=== PATIENT | male | born 1965 | race African-American/Black ===

== ENCOUNTER 2023-05-25 19:45 | Inpatient (IN) | payer OTHER ==
[~2023-05-25] VITALS: Ht 182.9 cm; Wt 64.4 kg
[2023-05-25] MEDS: ALBUTEROL FS 2.5 MG/3 ML VIAL.NEB NEB ONE (03:11)
[2023-05-25] MEDS: IV NS 0.9% 1,000 ML BAG IV ONE (20:08)
[2023-05-25] MEDS ORDERED: DEXTROSE 50%-WATER 50 ML DISP.SYRIN ONE (20:21)
[2023-05-25] MEDS: DEXTROSE 50%-WATER 50 ML DISP.SYRIN IV ONE (20:22)
[2023-05-25] MEDS ORDERED: NOREPINEPHRINE 8MG/250ML RTU 250 ML IV ONE (20:40)
[2023-05-25 20:48] LABS: CALCIUM, SERUM 9.1 mg/dL (8.5-10.1); CARBON DIOXIDE 18 mmol/L (21-32); CHLORIDE 109 mmol/L (98-107); CREATININE 1.9 mg/dL (0.6-1.3); GLUCOSE 67 mg/dL (74-106); POTASSIUM 5.4 mmol/L (3.5-5.1); SODIUM SERUM 143 mmol/L (136-145); UREA NITROGEN, BLOOD 66 mg/dL (7-18)
[2023-05-25] MEDS: NOREPINEPHRINE 8 MG in IV D5W 242 ML IV PRN (20:59)
[2023-05-25 21:02] LABS: ALANINE AMINOTRANSFERASE 11 U/L (12-78); ALKALINE PHOSPHATASE 112 U/L (46-116); ASPARTATE AMINOTRANSFERASE 67 U/L (15-37); BILIRUBIN,DIRECT 1.8 mg/dL (0.0-0.2); BILIRUBIN,TOTAL 2.4 mg/dL (0.2-1.0); LIPASE 10 U/L (16-77); NT-PRO BNP 1433 pg/mL (0-125); TOTAL PROTEIN, SERUM 5.4 g/dL (6.4-8.2)
[2023-05-25 21:05] LABS: ALBUMIN 1.4 g/dL (3.4-5.0)
[2023-05-25 21:12] LABS: APPEARANCE,URINE CLEAR (CLEAR); BILIRUBIN,URINE NEGATIVE (NEGATIVE); BLOOD, URINE NEGATIVE Ery/uL (NEGATIVE); COLOR,URINE DARK YELLOW (YELLOW); KETONES,URINE NEGATIVE (NEGATIVE); LEUKOCYTE ESTERASE ,URINE TRACE (NEGATIVE); NITRITE, URINE NEGATIVE (NEGATIVE); PH,URINE 5.5 (5.0-8.0); PROTEIN,URINE NEGATIVE (NEGATIVE); UGLUCOSE NEGATIVE (NEGATIVE)
[2023-05-25 21:23] LABS: BASOPHILS % (AUTO) 0.1 % (0.0-2.0); EOSINOPHILS % (AUTO) 0.1 % (0.0-6.0); HEMATOCRIT 25 % (39-51); HEMOGLOBIN 7.2 g/dL (13.5-17.5); LYMPHOCYTES # (AUTO) 1.3 K/uL (0.8-4.8); LYMPHOCYTES % (AUTO) 9.9 % (20.0-44.0); MEAN CORPUSCULAR HEMOGLOBIN 25 PG (26.0-33.0); MEAN CORPUSCULAR HGB CONC 29 g/dl (31.0-36.0); MEAN CORPUSCULAR VOLUME 86 fL (80-96); MONOCYTES # (AUTO) 1.1 K/uL (0.1-1.30); MONOCYTES % (AUTO) 8.7 % (2.0-12.0); NEUTROPHILS # (AUTO) 10.5 K/uL (1.8-8.9); NEUTROPHILS % (AUTO) 81.2 % (43.0-81.0); PLATELET COUNT (AUTO) 144 K/uL (150-450); RED BLOOD CELL COUNT(AUTO) 2.87 MIL/uL (4.5-6.0); RED CELL DISTRIBUTION WIDTH 23.1 % (11.5-15.0); WHITE BLOOD COUNT (AUTO) 12.9 K/uL (4.3-11.0)
[2023-05-25] MEDS ORDERED: PIPERACI/TAZO 3.375GM/D5W 50ML PB IV ONE (21:30)
[2023-05-25] MEDS ORDERED: VANCOMYCIN 1 GM /D5W 250 ML PB IV ONE (21:30)
[2023-05-25 21:39] LABS: ADD URINE CULTURE YES; BACTERIA,URINE 1+ /HPF (None Seen); RBC,URINE 0-2 /HPF (0-2); SQUAMOUS EPITHELIAL CELL,UR None Seen /HPF (None Seen)
[2023-05-25 21:52] LABS: ANISOCYTOSIS 2+; BAND % (MANUAL) 2 % (0.0-5.0); LYMPHOCYTES % (MANUAL) 12 % (16-48); MONOCYTES % (MANUAL) 5 % (0-11.0); MYELOCYTES % 1 % (0-0); NEUTROPHILS % (MANUAL) 80 (42-76); PLATELET ESTIMATE DECREASED; TARGET CELLS 2+
[2023-05-25] MEDS ORDERED: ONDANSETRON HCL/PF 4 MG/2 ML VIAL IVP PRN (22:00)
[2023-05-25] MEDS ORDERED: Z GUARD REMEDY 4 OZ OINT TP PRN (22:00)
[2023-05-25] MEDS: IV D5/0.45 NACL 1,000 ML IV SCH (22:00)
[2023-05-25] MEDS ORDERED: MAG HYDROX/AL HYDROX/SIMETH 30 ML UDC PO PRN (22:00)
[2023-05-25] MEDS ORDERED: MAGNESIUM HYDROXIDE 30 ML UDC PO PRN (22:00)
[2023-05-25] MEDS: VANCOMYCIN 1 GM in IV D5W 250 ML IV ONE (22:04)
[2023-05-25] MEDS: PIPERACILLIN /TAZOBACTAM 3.375 G in IV D5W 50 ML IV ONE (22:04)
[2023-05-25] MEDS: SODIUM POLYSTYRENE SULFONATE 15 G/60 ML BOTTLE PO ONE (22:16)
[2023-05-25] MEDS: SODIUM BICARBONATE SYR 50 MEQ/50 ML DISP.SYRIN IV ONE (22:16)
[2023-05-26] VITALS (31 sets, daily range): BP systolic 70–114; BP diastolic 54–83; TEMP 98–98.3; O2SAT 96–100
[2023-05-26] MEDS: ACETAMINOPHEN 325 MG TABLET PO PRN (00:12)
[2023-05-26] MEDS ORDERED: ACETAMINOPHEN 325 MG TABLET ONE ×3 (00:13→11:48)
[2023-05-26] MEDS ORDERED: CEFEPIME 1 GM VIAL ONE (03:05)
[2023-05-26] MEDS: CEFEPIME 1 GM in IV D5W 50 ML IV ONE (03:08)
[2023-05-26] MEDS ORDERED: ALBUTEROL FS 2.5 MG/3 ML VIAL.NEB ONE (03:11)
[2023-05-26] MEDS ORDERED: NOREPINEPHRINE 8MG/250ML RTU 250 ML IV ONE (04:13)
[2023-05-26 07:13] LABS: BASOPHILS % (AUTO) 0.1 % (0.0-2.0); EOSINOPHILS % (AUTO) 0.1 % (0.0-6.0); HEMATOCRIT 26 % (39-51); HEMOGLOBIN 7.9 g/dL (13.5-17.5); LYMPHOCYTES # (AUTO) 1.7 K/uL (0.8-4.8); LYMPHOCYTES % (AUTO) 11.2 % (20.0-44.0); MEAN CORPUSCULAR HEMOGLOBIN 25 PG (26.0-33.0); MEAN CORPUSCULAR HGB CONC 30 g/dl (31.0-36.0); MEAN CORPUSCULAR VOLUME 85 fL (80-96); MONOCYTES # (AUTO) 1.2 K/uL (0.1-1.30); MONOCYTES % (AUTO) 7.9 % (2.0-12.0); NEUTROPHILS # (AUTO) 12.5 K/uL (1.8-8.9); NEUTROPHILS % (AUTO) 80.7 % (43.0-81.0); PLATELET COUNT (AUTO) 167 K/uL (150-450); RED CELL DISTRIBUTION WIDTH 22.8 % (11.5-15.0); WHITE BLOOD COUNT (AUTO) 15.5 K/uL (4.3-11.0)
[2023-05-26 07:31] LABS: ALBUMIN 1.6 g/dL (3.4-5.0); BILIRUBIN,TOTAL 2.5 mg/dL (0.2-1.0); CREATININE 2.2 mg/dL (0.6-1.3); MAGNESIUM 2.3 mg/dL (1.8-2.4); PHOSPHORUS 4.2 mg/dL (2.5-4.9); POTASSIUM 4.5 mmol/L (3.5-5.1); TOTAL PROTEIN, SERUM 5.7 g/dL (6.4-8.2)
[2023-05-26] MEDS ORDERED: OXYC10TA59 PO (08:37)
[2023-05-26] MEDS ORDERED: BISA10SU12 RC (08:37)
[2023-05-26] MEDS ORDERED: morphine sulfate SL (08:37)
[2023-05-26] MEDS ORDERED: HYOS-17 SL (08:37)
[2023-05-26] MEDS ORDERED: ACET650S11 RC (08:37)
[2023-05-26] MEDS ORDERED: VITS42.53 TP (08:37)
[2023-05-26] MEDS ORDERED: HYDR4TAB57 PO (08:37)
[2023-05-26] MEDS ORDERED: ONDA8TAB13 SL (08:37)
[2023-05-26] MEDS ORDERED: DOCU-141 PO (08:37)
[2023-05-26] MEDS ORDERED: IPRA3AMP22 IH (08:37)
[2023-05-26] MEDS ORDERED: HYDROCORTISONE SOD SUCCINATE 100 MG/2 ML VIAL ONE ×2 (08:55→13:02)
[2023-05-26] MEDS: HYDROCORTISONE SOD SUCCINATE 100 MG/2 ML VIAL IV SCH (08:57)
[2023-05-26 09:16] LABS: BAND % (MANUAL) 11 % (0.0-5.0); LYMPHOCYTES % (MANUAL) 6 % (16-48); MONOCYTES % (MANUAL) 7 % (0-11.0); MYELOCYTES % 2 % (0-0); NEUTROPHILS % (MANUAL) 74 (42-76); PLATELET ESTIMATE ADEQUATE
[2023-05-26 09:17] LABS: ANISOCYTOSIS 1+; HYPOCHROMASIA 1+; TARGET CELLS 2+
[2023-05-26] MEDS ORDERED: HYDROCORTISONE SOD SUCCINATE 100 MG/2 ML VIAL IV SCH (14:00)
[2023-05-26 15:28] LABS: INR 1.33 (0.91-1.10); PARTIAL THROMBOPLASTIN TIME 39.9 SEC (24.3-34.3); PROTHROMBIN TIME 13.8 SECS (9.2-11.1)
[2023-05-26] MEDS: CEFEPIME HCL 2 GM in IV D5W 100 ML IV SCH (17:28)
[2023-05-26] MEDS: NOREPINEPHRINE 8 MG in IV NS 0.9% 242 ML IV PRN (18:48)
[2023-05-26] MEDS: VANCOMYCIN HCL 1.25 GM in IV D5W 250 ML IV SCH (20:56)
[2023-05-27] VITALS (90 sets, daily range): BP systolic 87–125; BP diastolic 59–88; TEMP 97–98.3; O2SAT 96–100
[2023-05-27 07:23] LABS: BASOPHILS % (AUTO) 0.2 % (0.0-2.0); HEMATOCRIT 27 % (39-51); HEMOGLOBIN 7.9 g/dL (13.5-17.5); LYMPHOCYTES % (AUTO) 9.3 % (20.0-44.0); MEAN CORPUSCULAR HEMOGLOBIN 25 PG (26.0-33.0); MEAN CORPUSCULAR HGB CONC 29 g/dl (31.0-36.0); MEAN CORPUSCULAR VOLUME 87 fL (80-96); MONOCYTES # (AUTO) 1.4 K/uL (0.1-1.30); MONOCYTES % (AUTO) 6.6 % (2.0-12.0); NEUTROPHILS # (AUTO) 17.9 K/uL (1.8-8.9); NEUTROPHILS % (AUTO) 83.9 % (43.0-81.0); PLATELET COUNT (AUTO) 125 K/uL (150-450); RED BLOOD CELL COUNT(AUTO) 3.14 MIL/uL (4.5-6.0); RED CELL DISTRIBUTION WIDTH 22.8 % (11.5-15.0); WHITE BLOOD COUNT (AUTO) 21.4 K/uL (4.3-11.0)
[2023-05-27 07:56] LABS: ALBUMIN 1.5 g/dL (3.4-5.0); BILIRUBIN,TOTAL 1.7 mg/dL (0.2-1.0); CALCIUM, SERUM 8.7 mg/dL (8.5-10.1); CREATININE 2.1 mg/dL (0.6-1.3); PHOSPHORUS 4.1 mg/dL (2.5-4.9); POTASSIUM 3.5 mmol/L (3.5-5.1); TOTAL PROTEIN, SERUM 5.5 g/dL (6.4-8.2)
[2023-05-27] MEDS: MORPHINE SULFATE INJ 2 MG/ML DISP.SYRIN IV PRN (12:23)
[2023-05-27] MEDS: THERAHONEY GEL 1.5 OZ TUBE TP SCH (12:24)
[2023-05-27 13:18] LABS: APPEARANCE,URINE CLEAR (CLEAR); BILIRUBIN,URINE NEGATIVE (NEGATIVE); BLOOD, URINE NEGATIVE Ery/uL (NEGATIVE); COLOR,URINE DARK YELLOW (YELLOW); KETONES,URINE NEGATIVE (NEGATIVE); LEUKOCYTE ESTERASE ,URINE NEGATIVE (NEGATIVE); NITRITE, URINE NEGATIVE (NEGATIVE); PH,URINE 5.5 (5.0-8.0); PROTEIN,URINE 1+ mg/dl (NEGATIVE); UGLUCOSE NEGATIVE (NEGATIVE); UROBILINOGEN,URINE 0.2 EU/dL (0.2)
[2023-05-27 13:23] LABS: CREATININE, URINE 44.5 MG/DL (30.0-125.0); URINE TOTAL PROTEIN 89.8 mg/dL (0-11.9)
[2023-05-27 13:27] LABS: EOSINOPHIL,URINE None Seen
[2023-05-27] MEDS: HEPARIN SODIUM, PORCINE 5000 UNITS/1 ML VIAL SQ SCH (14:10)
[2023-05-27] MEDS: HYDROMORPHONE 1 MG/1 ML DISP.SYRIN IV PRN (14:14)
[2023-05-27 15:33] LABS: PROTEIN, BODY FLUID 2.5 G/DL
[2023-05-27 15:34] LABS: TOTAL VOLUME,BODY FLUID 1400 mL; WBC, BODY FLUID 588 /cu. mm. (0-200)
[2023-05-27 16:12] LABS: APPEARANCE,SPUN,BODY FLUID CLEAR (CLEAR)
[2023-05-27 16:26] LABS: MACROPHAGES, BODY FLUID 0; MONOCYTES,BODY FLUID 2 %; POLYNUCLEAR, BODY FLUID 51 % (0-25)
[2023-05-27] MEDS: MEROPENEM 1 G in IV NS 0.9% 100 ML IV ONE (19:32)
[2023-05-28] VITALS (94 sets, daily range): BP systolic 58–123; BP diastolic 40–95; TEMP 97.7–98.2; O2SAT 94–99
[2023-05-28] MEDS: LORAZEPAM INJ 2 MG/ML VIAL IV PRN (04:22)
[2023-05-28 04:42] LABS: BASOPHILS % (AUTO) 0.1 % (0.0-2.0); HEMATOCRIT 26 % (39-51); HEMOGLOBIN 7.4 g/dL (13.5-17.5); LYMPHOCYTES # (AUTO) 1.8 K/uL (0.8-4.8); LYMPHOCYTES % (AUTO) 7.9 % (20.0-44.0); MEAN CORPUSCULAR HEMOGLOBIN 25 PG (26.0-33.0); MEAN CORPUSCULAR HGB CONC 29 g/dl (31.0-36.0); MEAN CORPUSCULAR VOLUME 88 fL (80-96); MONOCYTES # (AUTO) 1.2 K/uL (0.1-1.30); MONOCYTES % (AUTO) 5.1 % (2.0-12.0); NEUTROPHILS % (AUTO) 86.9 % (43.0-81.0); PLATELET COUNT (AUTO) 227 K/uL (150-450); RED BLOOD CELL COUNT(AUTO) 2.93 MIL/uL (4.5-6.0); RED CELL DISTRIBUTION WIDTH 23.7 % (11.5-15.0); WHITE BLOOD COUNT (AUTO) 23.1 K/uL (4.3-11.0)
[2023-05-28] MEDS: MEROPENEM 1 G in IV NS 0.9% 100 ML IV SCH (08:12)
[2023-05-28 14:11] LABS: POTASSIUM 3.5 mmol/L (3.5-5.1)
[2023-05-28 14:24] LABS: BILIRUBIN,TOTAL 1.4 mg/dL (0.2-1.0); CALCIUM, SERUM 8.3 mg/dL (8.5-10.1); PHOSPHORUS 3.5 mg/dL (2.5-4.9)
[2023-05-28 14:30] LABS: ALBUMIN 1.3 g/dL (3.4-5.0)
[2023-05-29] VITALS (102 sets, daily range): BP systolic 59–105; BP diastolic 42–75; TEMP 97.5–98; O2SAT 83–96
[2023-05-29 09:52] LABS: ABG BASE EXCESS -13.7 mmol/L; ABG OXYGEN SATURATION 92.3 % (92.0-98.5); ABG PCO2 22.2 mmHg (35.0-45.0); ABG PH 7.313 (7.350-7.450); ABG PO2 70.2 mmHg (75.0-100.0); ABG TOTAL HEMOGLOBIN 8.5 G/dL (13.5-18.0); COHb 1.2 % (0.5-1.5); MetHb 0.3 % (0.0-1.5); O2Hb 90.9 % (94.0-97.0); SITE, ABG Right Radial; VENT MODE, BG 6L NC
[2023-05-29] MEDS: SODIUM BICARBONATE SYR 50 MEQ/50 ML DISP.SYRIN IV ONE (10:57)
[2023-05-29 15:25] LABS: CALCIUM, SERUM 7.9 mg/dL (8.5-10.1); POTASSIUM 3.5 mmol/L (3.5-5.1)
[2023-05-29] MEDS: VANCOMYCIN 1 GM in IV D5W 250 ML IV SCH (20:56)
[2023-05-30] VITALS (58 sets, daily range): BP systolic 60–112; BP diastolic 30–101; TEMP 96–98.7; O2SAT 52–94
[2023-05-30] MEDS: NOREPINEPHRINE 8MG/250ML RTU 250 ML IV ONE (06:20)
[2023-05-30] MEDS: VANCOMYCIN 1 GM in IV D5W 250 ML IV SCH (08:31)
[2023-05-30] MEDS ORDERED: NOREPINEPHRINE 32 MG in IV NS 0.9% 218 ML IV PRN (09:00)
[2023-05-30] MEDS: PHENYLEPHRINE 100 MG in IV NS 0.9% 240 ML IV PRN (09:28)
[2023-05-30 10:03] LABS: BASOPHILS % (AUTO) 0.2 % (0.0-2.0); EOSINOPHILS % (AUTO) 0.1 % (0.0-6.0); HEMATOCRIT 31 % (39-51); HEMOGLOBIN 8.4 g/dL (13.5-17.5); LYMPHOCYTES # (AUTO) 1.1 K/uL (0.8-4.8); LYMPHOCYTES % (AUTO) 5.5 % (20.0-44.0); MEAN CORPUSCULAR HEMOGLOBIN 25 PG (26.0-33.0); MEAN CORPUSCULAR HGB CONC 27 g/dl (31.0-36.0); MEAN CORPUSCULAR VOLUME 95 fL (80-96); MONOCYTES % (AUTO) 4.6 % (2.0-12.0); NEUTROPHILS # (AUTO) 18.8 K/uL (1.8-8.9); NEUTROPHILS % (AUTO) 89.6 % (43.0-81.0); PLATELET COUNT (AUTO) 93 K/uL (150-450); RED CELL DISTRIBUTION WIDTH 22.3 % (11.5-15.0); WHITE BLOOD COUNT (AUTO) 20.9 K/uL (4.3-11.0)
[2023-05-30 10:07] LABS: *% CD 8 POS. LYMPH 45.8 % (12.0-35.5); *CD4/CD8 RATIO 0.79 (0.92-3.72)
[2023-05-30 10:18] LABS: CALCIUM, SERUM 7.9 mg/dL (8.5-10.1); CREATININE 2.5 mg/dL (0.6-1.3); POTASSIUM 4.9 mmol/L (3.5-5.1)
[2023-05-30] MEDS: NOREPINEPHRINE 32 MG in IV NS 0.9% 218 ML IV PRN (12:22)
[2023-05-30] MEDS: IV D5/0.45 NACL 1,000 ML IV PRN (12:24)
[2023-05-30 12:49] LABS: BAND % (MANUAL) 8 % (0.0-5.0); LYMPHOCYTES % (MANUAL) 9 % (16-48); METAMYELOCYTES % 1 % (0-0); MONOCYTES % (MANUAL) 6 % (0-11.0); NEUTROPHILS % (MANUAL) 79 (42-76)
[2023-05-30 12:50] LABS: ANISOCYTOSIS 1+; HYPOCHROMASIA 1+; PLATELET ESTIMATE DECREASED; TARGET CELLS 1+
[2023-05-30] MEDS: VASOPRESSIN INJ 40 UNIT in IV NS 0.9% 38 ML IV PRN (13:48)
[2023-05-30 16:11] LABS: *ABSOLUTE CD 4 HELPER 1620 /uL (359-1519); *ABSOLUTE CD 8 SUPPRESSOR 2061 /uL (109-897); *BASOS 1 % (Not Estab.); *BASOS, ABSOLUTE 0.2 x10E3/uL (0.0-0.2); *EOS 0 % (Not Estab.); *HCT 26.3 % (37.5-51.0); *HGB 7.8 g/dL (13.0-17.7); *LYMPHOCYTES 23 % (Not Estab.); *LYMPHS, ABSOLUTE 4.5 x10E3/uL (0.7-3.1); *MCHC 29.7 g/dL (31.5-35.7); *MCV 84 fL (79-97); *MONOCYTES 5 % (Not Estab.); *NEUTROPHILS 71 % (Not Estab.); *PLT 96 x10E3/uL (150-450); *RBC 3.12 x10E6/uL (4.14-5.80); *RDW 18.3 % (11.6-15.4); *WBC 19.7 x10E3/uL (3.4-10.8)
[2023-06-01] MEDS ORDERED: FUROSEMIDE 40 MG/4 ML VIAL ONE (00:19)
[2023-06-01] MEDS ORDERED: VANCOMYCIN 1 GM in IV D5W 250 ML IV SCH (08:00)
== END 2023-05-30 16:12 | DRG 720 ==
LOC: ER 19:56 → TRANSITION 05-26 01:10 → ICU 05-26 14:41
PROVIDERS: ADMIT Internal Medicine; ATTEND Internal Medicine
PROC: 05HB33Z Insertion of Infusion Device into Right Basilic Vein, Percutaneous Approach (ICD-10-PCS; 2023-05-26)
PROC: 0W9B3ZX Drainage of Left Pleural Cavity, Percutaneous Approach, Diagnostic (ICD-10-PCS; principal; 2023-05-27)
DX: A41.9 Sepsis, unspecified organism (principal); N17.0 Acute kidney failure with tubular necrosis; R65.21 Severe sepsis with septic shock; E43 Unspecified severe protein-calorie malnutrition; J15.69 Pneumonia due to other Gram-negative bacteria; L89.153 Pressure ulcer of sacral region, stage 3; R64 Cachexia; D69.6 Thrombocytopenia, unspecified; J90 Pleural effusion, not elsewhere classified; D63.8 Anemia in other chronic diseases classified elsewhere; E88.09 Other disorders of plasma-protein metabolism, not elsewhere classified; N39.0 Urinary tract infection, site not specified; Z66 Do not resuscitate; Z20.822 Contact with and (suspected) exposure to COVID-19; J98.11 Atelectasis; B96.89 Other specified bacterial agents as the cause of diseases classified elsewhere; E80.6 Other disorders of bilirubin metabolism; E16.2 Hypoglycemia, unspecified; Z85.72 Personal history of non-Hodgkin lymphomas; Z79.899 Other long term (current) drug therapy; E86.0 Dehydration; I10 Essential (primary) hypertension; Z68.1 Body mass index [BMI] 19.9 or less, adult
CPT/HCPCS: 36415; 36600; 71045-TC; 76770-TC; 80048-TC; 80053-TC; 80076-TC; 80202-TC; 81001; 82533; 82570-TC; 82962-TC; 83690-TC; 83735-TC; 83880; 84100-TC; 84300-TC; 84484-TC; 85025-TC; 85730-TC; 86360; 87040-TC; 87081-TC; 87086-TC; 87102-TC; 87536; 89051-TC; A4223; A6403; G0378; J0692; J1170; J1644; J1720; J1940; J2060; J2185; J2270; J2405; J2543; J3370; J3490; J7030; J7050; J7060